=== PATIENT | female | born 1960 | race Caucasian/White ===

== ENCOUNTER 2019-11-05 09:33 | Day surgery (SDC) | payer SELFPAY ==
[~2019-11-05 09:33] MED LIST: Lactated Ringers 1,000 ML IV SCH
[2019-11-05] MEDS ORDERED: Midazolam 1 MG/ML 2 ML SDV ONE (10:39)
[2019-11-05] MEDS ORDERED: fentaNYL 100 MCG/2 ML SDV ONE (10:39)
[2019-11-05] MEDS ORDERED: Propofol 200 MG/20 ML SDV ONE (10:50)
[2019-11-05 11:33] VITALS: BP 119/68; PULSE 65
--- NOTE | 2019-11-05 13:55 | OR ---
DATE OF SURGERY: 11/05/2019. REFERRING PROVIDER: Taylor Laureano PA-C PRE-OPERATIVE DIAGNOSES: Positive family history of colon cancer in paternal grandfather in his 50s. There is also a family history of colon polyps in sister. The patient states last colonoscopy was about 5 years ago and this was normal. POST-OPERATIVE DIAGNOSES: 1. 4 mm polyp at 35 cm, removed with cold snare on the way in. 2. Mild left-sided diverticulosis. 3. Mild hemorrhoids. 4. Somewhat tortuous colon. PROCEDURE: Colonoscopy with polypectomy x1 using cold snare. SURGEON: Jason Ramos M.D. ANESTHESIA: Monitored anesthesia care. BOWEL PREP: Good. Samraa is a 59-year-old female who was brought to the endoscopy suite after discussing risks and benefits of the procedure. Informed consent was obtained for conscious sedation and colonoscopy with or without biopsy and/or polypectomy. We also discussed possibility of missed lesions. Pre-procedure exam was unremarkable. IV, oxygen, and monitors were placed. The patient was placed in the left lateral decubitus position. Sedation was administered and a digital rectal exam was performed and unremarkable except for some mild hemorrhoids. Colonoscope was passed into the rectum and slowly advanced all the way to the cecum. The patient did have somewhat tortuous colon. Cecum was viewed and photographed. The colonoscope was slowly withdrawn and the mucosa was closed observed in a direct circumferential manner. The ascending colon was unremarkable. The transverse colon was unremarkable. The descending colon was unremarkable. The sigmoid colon revealed some mild diverticulosis as well as a 4 mm polyp at 35 cm, removed with cold snare on the way in. Retroflexion was performed and rectal mucosa revealed some mild hemorrhoids, not acutely inflamed. Scope was removed. The patient tolerated the procedure well. The patient was monitored until that baseline status. Discharge instructions were reviewed and the patient was discharged in good condition. COMPLICATIONS: None. TOTAL TIME: 20 minutes. ESTIMATED BLOOD LOSS: Less than 1 mL. RECOMMENDATIONS/FOLLOW-UP: We will await results of path report to determine ideal followup interval. I will have her hold her aspirin for about 3 days to limit any chance of bleeding from polypectomy site. I would like to kindly thank Taylor Laureano for this referral. DMB: 11/05/2019 11:28:36 MODL: 11/05/2019 12:28:01 /[id number]
== END 2019-11-05 12:25 | disposition home or self-care (01) ==
LOC: VM.SDS 09:33
PROVIDERS: ATTEND Family Medicine
DX: Z12.11 Encounter for screening for malignant neoplasm of colon (principal); D12.5 Benign neoplasm of sigmoid colon; D05.12 Intraductal carcinoma in situ of left breast; K64.8 Other hemorrhoids; Q43.8 Other specified congenital malformations of intestine; I10 Essential (primary) hypertension; K57.30 Diverticulosis of large intestine without perforation or abscess without bleeding; E66.9 Obesity, unspecified; Z11.59 Encounter for screening for other viral diseases; Z98.890 Other specified postprocedural states; Z80.0 Family history of malignant neoplasm of digestive organs; Z68.31 Body mass index [BMI] 31.0-31.9, adult; Z79.899 Other long term (current) drug therapy; Z79.82 Long term (current) use of aspirin
CPT/HCPCS: 00812; J2250; J2704; J3010; J7120; U0002